=== PATIENT | female | born 1990 | race Caucasian/White ===

== ENCOUNTER 2016-06-23 13:40 | Emergency (ER) | payer MEDICAID ==
[~2016-06-23] VITALS: Ht 157.5 cm; Wt 47.6 kg
[~2016-06-23 13:40] MED LIST: IRON PILLS PO; PREN1TAB48 PO
--- NOTE | 2016-06-23 13:55 | NUR ---
SHANNA MORA AT THE BEDSIDE.
[2016-06-23 15:48] VITALS: BP 121/64
--- NOTE | 2016-06-23 15:49 | NUR ---
Patient discharged to home in stable conditon. Written and verbal after care instructions given. Patient verbalizes understanding of instructions.
== END 2016-06-23 15:49 | disposition home or self-care (01) ==
LOC: ER 13:41
DX: S92.401A Displaced unspecified fracture of right great toe, initial encounter for closed fracture (principal); Z88.6 Allergy status to analgesic agent; X58.XXXA Exposure to other specified factors, initial encounter; Y93.89 Activity, other specified; Y99.8 Other external cause status; Y92.89 Other specified places as the place of occurrence of the external cause
CPT/HCPCS: 73660; A4663